=== PATIENT | male | born 1960 | race Asian ===

== ENCOUNTER 2018-04-08 09:06 | Day surgery (SDC) | payer OTHER ==
[~2018-04-08 09:06] MED LIST: ACETAMINOPHEN 1000 MG/100 ML IVPB
[2018-04-08] MEDS ORDERED: SOD CHLORIDE 0.9% 1,000 ML IV (10:30)
[2018-04-08] MEDS ORDERED: CEFAZOLIN 2 GM/50 ML (PMX) 50 ML IVPB (10:30)
[2018-04-08 10:45] LABS: ADD MAN DIFF? NO
[2018-04-08 10:46] LABS: WHITE BLOOD COUNT 8.3 10^3/ul (4.8-10.8)
[2018-04-08 10:46] LABS: BASOPHILS % 0.4 % (0.0-2.0); EOSINOPHILS # 0.2 10^3/ul (0.0-0.5); EOSINOPHILS % 1.9 % (0.0-7.0); HEMATOCRIT 33.5 % (42.0-52.0); HEMOGLOBIN 11.5 g/dl (14.0-18.0); LYMPHOCYTES # 2.2 10^3/ul (0.8-2.9); LYMPHOCYTES % 26.2 % (15.0-51.0); MEAN CORPUSCULAR HEMOGLOBIN 31.3 pg (29.0-33.0); MEAN CORPUSCULAR HGB CONC 34.3 g/dl (32.0-37.0); MEAN CORPUSCULAR VOLUME 91.3 fl (82.0-101.0); MEAN PLATELET VOLUME 10.1 fl (7.4-10.4); MONOCYTE # 0.9 10^3/ul (0.3-0.9); MONOCYTES % 11.4 % (0.0-11.0); PLATELET COUNT 212 10^3/UL (140-415); RED BLOOD COUNT 3.67 10^6/ul (4.70-6.10); RED CELL DISTRIBUTION WIDTH 12.1 % (11.5-14.5)
[2018-04-08 11:05] LABS: ALANINE AMINOTRANSFERASE 19 IU/L (13-69); ALBUMIN 4.2 g/dl (3.3-4.9); ALBUMIN/GLOBULIN RATIO 1.31; ALKALINE PHOSPHATASE 63 IU/L (42-121); ANION GAP 16 (8-16); ASPARTATE AMINO TRANSFERASE 15 IU/L (15-46); BILIRUBIN,INDIRECT 0.4 mg/dl (0-1.1); BILIRUBIN,TOTAL 0.4 mg/dl (0.2-1.3); CALCIUM 8.8 mg/dl (8.4-10.2); CARBON DIOXIDE 24 mmol/L (21-31); CHLORIDE 108 mmol/L (97-110); GLUCOSE 113 mg/dl (70-220); POTASSIUM 3.8 mmol/L (3.5-5.1); SODIUM 144 mmol/L (135-144); TOTAL PROTEIN 7.4 g/dl (6.1-8.1)
[2018-04-08 11:07] LABS: BLOOD UREA NITROGEN 21 mg/dl (7-20)
[2018-04-08 11:08] LABS: CREATININE 1.58 mg/dl (0.61-1.24)
[2018-04-08] MEDS ORDERED: MIDAZOLAM 1 MG/ML 2 ML INJ (13:00)
[2018-04-08] MEDS ORDERED: ROPIVACAINE 0.5 % 30 ML VIAL (13:00)
[2018-04-08] MEDS ORDERED: ROCURONIUM 50 MG INJ (13:00)
[2018-04-08] MEDS ORDERED: PROPOFOL 20 ML (13:00)
[2018-04-08] MEDS ORDERED: CEFAZOLIN 1 GM INJ (13:00)
[2018-04-08] MEDS ORDERED: OXYCODONE/ACETAMINOPHEN (5/325) TAB PO ×2 (13:30)
[2018-04-08] MEDS ORDERED: EPHEDrine SULFATE 50 MG/5 ML SYG IV (13:30)
[2018-04-08] MEDS ORDERED: MEPERIDINE 25 MG INJ IV (13:30)
[2018-04-08] MEDS ORDERED: FENTAnyl 50 MCG/ML VIAL IV ×3 (13:30)
[2018-04-08] MEDS ORDERED: DIPHENHYDRAMINE 50 MG INJ IV (13:30)
[2018-04-08] MEDS ORDERED: hydrALAzine 20 MG INJ IV (13:30)
[2018-04-08] MEDS ORDERED: METOCLOPRAMIDE 10 MG INJ IV (13:30)
[2018-04-08] MEDS ORDERED: HYDROmorphONE (0.2 MG/ML) 10ML SYG IV ×3 (13:30)
[2018-04-08] MEDS ORDERED: LABETALOL HCL 20MG INJ IV (13:30)
[2018-04-08] MEDS ORDERED: BUPIVACAINE 0.25% (MPF) 30 ML INJ (14:09)
[2018-04-08] MEDS ORDERED: KETOROLAC 30 MG INJ (14:57)
[2018-04-08] MEDS ORDERED: DEXAMETHASONE 4 MG/ML 1 ML INJ (14:57)
[2018-04-08] MEDS ORDERED: SUGAMMADEX SODIUM 200 MG/2 ML VIAL IV (14:57)
[2018-04-08] MEDS ORDERED: METOCLOPRAMIDE 10 MG INJ (14:57)
[2018-04-08] MEDS ORDERED: ONDANSETRON 4 MG INJ (14:57)
[2018-04-08] MEDS: BUPIVACAINE 0.25% (MPF) 30 ML INJ INJ (15:04)
[2018-04-08] MEDS: HYDROCODONE/APAP (5/325) TAB PO (16:11)
[2018-04-08] MEDS: ONDANSETRON 4 MG INJ IV (16:13)
== END 2018-04-08 17:40 | disposition home or self-care (01) ==
LOC: SDS 09:06
DX: K80.10 Calculus of gallbladder with chronic cholecystitis without obstruction (principal); E11.9 Type 2 diabetes mellitus without complications; I10 Essential (primary) hypertension; E78.5 Hyperlipidemia, unspecified
CPT/HCPCS: 47562; 80053; 82962; 85025; 88304